=== PATIENT | female | born 1995 | race African-American/Black ===

== ENCOUNTER 2016-12-25 10:22 | Emergency (ER) | payer SELFPAY ==
[2016-12-25 11:49] LABS: UA SPECIFIC GRAVITY <=1.005 (1.005-1.035); microscopic required? YES; urine erythrocyte 3+ (NEGATIVE)
[2016-12-25 12:12] VITALS: BP 112/68
== END 2016-12-25 12:12 | disposition home or self-care (01) ==
LOC: ED 10:22
PROVIDERS: Emergency Medicine
DX: N94.89 Other specified conditions associated with female genital organs and menstrual cycle (principal); R30.0 Dysuria